=== PATIENT | female | born 1950 | race Caucasian/White ===

== ENCOUNTER → 2016-11-02 | Outpatient (CLI) | payer MEDICARE, OTHER ==
--- NOTE | 2016-11-02 14:56 | CT ---
EXAMINATION TYPE: CT abdomen pelvis w con DATE OF EXAM: 11/02/2016 COMPARISON: 10/06/2015 HISTORY: Upper abdominal pain. History of prior Whipple procedure. CT DLP: 923 mGycm CONTRAST: CT scan of the abdomen and pelvis is performed with Oral Contrast and with IV Contrast, patient injec marvin with 100 mL of Omnipaque 300. FINDINGS: LUNG BASES-: No visible nodule. No infiltrate. LIVER/GB: The gallbladder surgically absent. Small amount of air is seen within the central biliary tree. Mild hepatic steatosis. No space occupying hepatic lesion. Biliary tree is of normal caliber. PANCREAS: No inflammation. No distinct mass. Changes of prior Whipple procedure. SPLEEN: No splenic enlargement. No lesion seen. ADRENALS: Stable left adrenal adenoma. KIDNEYS/BLADDER: No hydronephrosis. No nephrolithiasis. Small right renal cyst. Urinary bladder gr ossly unremarkable. BOWEL: Normal appendix. Normal bowel caliber. No inflammation. Moderate retained fecal debris. GENITAL ORGANS: No gross abnormality. LYMPH NODES: No greater than 1cm abdominal or pelvic lymph nodes are appreciated. AORTA: No significant abnormality. OSSEOUS STRUCTURES: No significant abnormality is seen. OTHER: No significant additional abnormality is seen. IMPRESSION: 1. No significant abnormality to account for the patient's symptoms.
== END | disposition home or self-care (01) ==
LOC: RADCTMAIN 14:10
PROVIDERS: ATTEND Internal Medicine Infectious Disease
DX: R10.10 Upper abdominal pain, unspecified (principal)
CPT/HCPCS: 74177; Q9967

== ENCOUNTER 2016-11-21 09:49 | Day surgery (SDC) | payer MEDICARE, OTHER ==
[2016-11-19 14:05] VITALS: BMI 28.7
[~2016-11-21 09:49] MED LIST: LACTATED RINGERS 1,000 ML IV SCH; LIDOCAINE 1% 20 ML VIAL (10MG/ML) FOR IV START INTRADERMA PRN
[2016-11-21 10:41] VITALS: RESP 16; TEMP 97.7
[2016-11-21] MEDS ORDERED: ONDANSETRON 4 MG/2 ML VIAL IVP ONE (10:42)
[2016-11-21] MEDS ORDERED: PROPOFOL 10 MG/ML 20 ML VIAL IV ONE (11:06)
--- NOTE | 2016-11-21 11:23 | P.PCN ---
Date of Procedure: 11/21/16 Preoperative Diagnosis: Postoperative Diagnosis: Procedure(s) Performed: BRIEF HISTORY: Patient is a 65-year-old, pleasant, white female, scheduled for an upper endoscopy as a part of evaluation of severe epigastric pain, heartburn for the last 2 months duration. She does have loosening history of GERD and has been on Nexium 20 mg daily for 2 years. Recently her medications were increased to 20 mg twice daily, despite which she is symptomatic. She has prior history of partial gastrectomy.. PROCEDURE PERFORMED: Esophagogastroduodenoscopy With biopsy PREOPERATIVE DIAGNOSIS: Epigastric pain/heartburn IV sedation per anesthesia. PROCEDURE: After informed consent was obtained, the patient was brought into the endoscopy unit. IV sedation was administered by Anesthesia under continuous monitoring. Initially the Olympus GIF-140 video endoscope was inserted into the mouth. Esophagus intubated without any difficulty. It was gradually advanced into the stomach there was evidence of previous partial gastrectomy with anastomosis noted. The scope was advanced into the jejunum that appeared normal. At the site of anastomosis and multiple small polyps identified and biopsies were done from this area. The body, cardia and the fappeared slightly erythematous consistent with gastritis. There are 2 polyps in the gastric remnant measuring about 1 m in size both of which were biopsied. The scope was then withdrawn into the esophagus. The GE junction was located at 39 cm from the incisors. there was a short segment tongue of Mcdonald's appearing mucosa proximal to the GE junction and this was biopsied. The rest of the esophagus appeared normal. There were no erosions or ulcerations seen and the patient tolerated the procedure well. IMPRESSION: 1. Gastric polyps in the gastric remnant status post biopsy. 2. Nodularity as well as polyps at the anastomosis status post multiple biopsies 3. 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 She was advised to follow with the biopsy results. If the biopsy confirms the presence of Mcdonald's esophagus, she can have a repeat upper endoscopy in 2 years. In the meantime because of the symptoms she will continue with Nexium twice daily and she may benefit from Carafate 1 g 4 times daily. Implants: Indications for Procedure: Operative Findings: Description of Procedure:
[2016-11-21 12:00] VITALS: BP 121/69; PULSE 59
== END 2016-11-21 12:14 | disposition home or self-care (01) ==
LOC: ORWHC2ENDO 09:49
PROVIDERS: ATTEND Internal Medicine Gastroenterology
DX: K25.9 Gastric ulcer, unspecified as acute or chronic, without hemorrhage or perforation (principal); K31.7 Polyp of stomach and duodenum; K29.50 Unspecified chronic gastritis without bleeding; K22.70 Barrett's esophagus without dysplasia; K21.0 Gastro-esophageal reflux disease with esophagitis; Z88.5 Allergy status to narcotic agent; Z86.73 Personal history of transient ischemic attack (TIA), and cerebral infarction without residual deficits; Z79.899 Other long term (current) drug therapy; Z79.82 Long term (current) use of aspirin; Z90.710 Acquired absence of both cervix and uterus; Z90.3 Acquired absence of stomach [part of]
CPT/HCPCS: 88305; 88342; 43239; J2405; J2704

== ENCOUNTER → 2016-12-27 | Outpatient (CLI) | payer MEDICARE, OTHER ==
--- NOTE | 2016-12-27 14:59 | BD ---
EXAMINATION TYPE: MG DEXA axial skeleton. DATE OF EXAM: 12/27/2016 COMPARISON: NONE CLINICAL HISTORY: M85.8 OSTEOPENIA Height: 61.3 Weight: 153 FRAX RISK QUESTIONS: Alcohol (3 or more units per day): NO Family History (Parent hip fracture): NO Glucocorticoids (More than 3mos): NO (Ex: prednisone, prednisolone, methylprednisolone, dexamethasone, and hydrocortisone). History of Fracture in Adulthood: NO Secondary Osteoporosis: 1. Type 1 Diabetes: NO 2. Hyperthyroidism: NO 3. Menopause before 45: YES 4. Malnutrition: NO 5. Chronic liver disease: NO Rheumatoid Arthritis: NO Current Tobacco Use: NO RISK FACTORS HISTORY OF: Surgery to Spine FUSION TO BOTH CERVICAL AND LUMBAR SPINE When: > 3 YRS OLD Family History of Osteoporosis: NO Active: SOMEWHAT Diet low in dairy products/other sources of calcium: NO Postmenopausal woman: TOTAL HYSTERECTOMY IN HER LATE 30S Take estrogen and/or progesterone medications: IN THE PAST ONLY How lon-4 YRS Lost more than 2 inches in height since high school: UNSURE Hyperparathyroidism: YES, THYROID RADIATED Adrenal Insufficiency: NO MEDICATIONS: Thyroid Medications: YES, SYNTHROID How Lon YRS Additional Medications: VIT D, BP MEDS, VENLAFAXINE, REFLUX MEDICATION, STATINS FOR CHOLESTEROL, REQU IP, HEART MEDS Additional History: ANEMIC, HX OF AA WITH SKULL FRACTURE, FUSIONS IN NECK AND LUMBAR SPINE EXAM MEASUREMENTS: Bone mineral densitometry was performed using the [employer] System. Bone mineral density as measured about the Lumbar spine is: ----- L1-L4(G/cm2): 1.023 T Score Values are as follows: ----- L1: -1.6 ----- L2: -1.4 ----- L3: -1.0 ----- L4: -1.4 ----- L1-L4: -1.3 Bone mineral density THIS IS HER FIRST BONE DENSITY SCAN AT [facility] Bone mineral density about the R hip (g/cm2): 0.885 Bone mineral density about the L hip (g/cm2): 0.856 T Score values are as follows: -----R Neck: -1.3 -----L Neck: -1.1 -----R Total: -1.0 -----L Total: -1.2 Bone mineral density FIRST BONE DENSITY TEST AT [facility] FRAX%'S: THERE IS A 9.0% CHANCE OF A MAJOR OSTEOPOROTIC FX AND A 1.0% FOR HIP FX....PROBABILITY IN 10 YRS TIME IMPRESSION: Osteopenia (T Score between -2.5 and -1 as noted by T score values There is slightly increased risk of fracture and the patient may be considered for treatment. Re-Screen 2-5 years. FOR BOTH OF HER HIPS AND LUMBAR SPINE NOTE: T-SCORE=SD OF THE YOUNG ADULT MEAN.
--- NOTE | 2016-12-28 10:13 | MM ---
Reason for exam: screening (asymptomatic). Last mammogram was performed 3 years and 9 months ago. History: Patient is postmenopausal. Benign core biopsy of the right breast, September 20, 2009. Benign left mammotome panel of the left breast, October 08, 2008. Benign left mammotome panel of the left breast, July 10, 2006. Benign right mammotome panel of the right breast, July 10, 2006. Reductions of both breasts, 2006. Benign stereotactic core biopsy of the right breast, October 18, 2000. Took estrogen for 6 years 1 month beginning at age 48. Taking unspecified hormones for 5 years beginning at age 53. Physical Findings: A clinical breast exam by your physician is recommended on an annual basis and results should be correlated with mammographic findings. MG 3D Screening Mammo W/Cad Bilateral CC and MLO view(s) were taken. Prior study comparison: April 10, 2013, CAD bilateral diagnostic mammogram. April 09, 2012, bilateral digital screening mammo w/CAD. There are scattered fibroglandular densities. No suspicious abnormality. No significant changes when compared with prior studies. ASSESSMENT: Negative, BI-RAD 1 RECOMMENDATION: Routine screening mammogram of both breasts in 1 year.
== END | disposition home or self-care (01) ==
LOC: RADMAMWWP 13:44
PROVIDERS: ATTEND Internal Medicine Infectious Disease
DX: Z12.31 Encounter for screening mammogram for malignant neoplasm of breast (principal); M85.80 Other specified disorders of bone density and structure, unspecified site
CPT/HCPCS: 77080; 77063; G0202

== ENCOUNTER → 2018-01-31 | Outpatient (CLI) | payer MEDICARE, OTHER ==
[2018-01-31 14:17] LABS: Appearance,Urine Cloudy (Clear); Bacteria,Urine Moderate /hpf; Bilirubin,Urine Negative (Negative); Blood,Urine Trace (Negative); Color,Urine Light Yellow; Glucose,Urine (UA) Negative (Negative); Ketones,Urine Negative (Negative); Leukocyte Esterase,Urine Large (Negative); Mucus,Urine Rare /hpf; Nitrite,Urine Positive (Negative); Protein,Urine Negative (Negative); RBC,Urine 2 /hpf (0-5); Squamous Epithelial Cell,Urine 1 /hpf (0-4); Urobilinogen,Urine <2.0 mg/dL (<2.0); WBC,Urine 182 /hpf (0-5)
== END | disposition home or self-care (01) ==
LOC: LABWHC1 12:41
PROVIDERS: ATTEND Internal Medicine Infectious Disease
DX: N39.0 Urinary tract infection, site not specified (principal)
CPT/HCPCS: 81001; 87077; 87086; 87186

== ENCOUNTER → 2018-05-28 | Outpatient (CLI) | payer MEDICARE, OTHER ==
--- NOTE | 2018-05-30 09:04 | MM ---
Reason for exam: screening (asymptomatic). Last mammogram was performed 1 year and 5 months ago. History: Patient is postmenopausal. Benign core biopsy of the right breast, September 20, 2009. Benign left mammotome panel of the left breast, October 08, 2008. Benign left mammotome panel of the left breast, July 10, 2006. Benign right mammotome panel of the right breast, July 10, 2006. Reductions of both breasts, 2006. Benign stereotactic core biopsy of the right breast, October 18, 2000. Took estrogen for 6 years 1 month beginning at age 48. Taking unspecified hormones for 5 years beginning at age 53. Physical Findings: A clinical breast exam by your physician is recommended on an annual basis and results should be correlated with mammographic findings. MG 3D Screening Mammo W/Cad Bilateral CC and MLO view(s) were taken. Prior study comparison: December 27, 2016, bilateral MG 3d screening mammo w/cad. April 10, 2013, CAD bilateral diagnostic mammogram. There are scattered fibroglandular densities. Benign appearing bilateral calcifications. Left biopsy marker noted. ASSESSMENT: Benign, BI-RAD 2 RECOMMENDATION: Routine screening mammogram of both breasts in 1 year.
== END | disposition home or self-care (01) ==
LOC: RADMAMWWP 12:59
PROVIDERS: ATTEND Internal Medicine Infectious Disease
DX: Z12.31 Encounter for screening mammogram for malignant neoplasm of breast (principal)
CPT/HCPCS: 77063; 77067

== ENCOUNTER → 2022-09-14 | Outpatient (CLI) | payer MEDICARE, OTHER ==
--- NOTE | 2022-09-17 08:41 | MM ---
Reason for Exam: Screening (asymptomatic). Last mammogram was performed 4 year(s) and 4 month(s) ago. Patient History: Menarche at age 7. First Full-Term at age 19. Left ovary removed at age 44. Right ovary removed at age 44. Hysterectomy at age 44. Postmenopausal. Estrogen for 6 years, 1 month, from age 48 until age 54. Currently using Unspecified Hormone, beginning at age 53 for 5 years. 09/20/2009, Benign Core Biopsy on the right side. 2006, Bilateral Reduction. 10/08/2008, Benign Core Biopsy on the left side. 07/10/2006, Benign Core Biopsy on the left side. 07/10/2006, Benign Core Biopsy on the right side. 10/18/2000, Benign Stereotactic Core Biopsy on the right side. Risk Values: Kiera 5 year model risk: 2.6%. NCI Lifetime model risk: 6.3%. Prior Study Comparison: 04/10/2013 Bilateral Diagnostic Mammogram, LOCATED WITHIN [facility]. 12/27/2016 Bilateral Screening Mammogram, LOCATED WITHIN [facility]. 05/28/2018 Bilateral Screening Mammogram, LOCATED WITHIN [facility]. Tissue Density: There are scattered fibroglandular densities. Findings: Analyzed By CAD. There is no suspicious group of microcalcifications or new suspicious mass in either breast. Biopsy marker in the left breast. Appearing calcifications within both breasts. Chronic nodularity within the right breast. Overall Assessment: Benign, BI-RAD 2 Management: Screening Mammogram of both breasts in 1 year. A clinical breast exam by your physician is recommended on an annual basis and results should be correlated with mammographic findings. Electronically signed and approved by: Octavio Vance D.O.
== END | disposition home or self-care (01) ==
LOC: RADMAMWWP 15:42
PROVIDERS: ATTEND Internal Medicine Infectious Disease
DX: Z12.31 Encounter for screening mammogram for malignant neoplasm of breast (principal); Z78.0 Asymptomatic menopausal state
CPT/HCPCS: 77063; 77067

== ENCOUNTER → 2022-09-14 | Outpatient (CLI) | payer MEDICARE, OTHER ==
[2022-09-15 01:47] LABS: Basophils # (A) 0.1 k/uL (0-0.2); Basophils % (A) 0 %; Eosinophils # (A) 0.2 k/uL (0-0.7); Eosinophils % (A) 1 %; HCT 35.8 % (34.0-46.0); HGB 11.5 gm/dL (11.4-16.0); Lymphocytes # (A) 1.6 k/uL (1.0-4.8); Lymphocytes % (A) 11 %; MCH 29.7 pg (25.0-35.0); MCHC 32.2 g/dL (31.0-37.0); MCV 92.1 fL (80.0-100.0); Mean Platelet Volume 8.4; Monocytes # (A) 0.9 k/uL (0-1.0); Monocytes % (A) 6 %; Neutrophils # (A) 11.5 k/uL (1.3-7.7); Neutrophils % (A) 80 %; Platelet Count 388 k/uL (150-450); RBC 3.89 m/uL (3.80-5.40); RDW 12.5 % (11.5-15.5); WBC 14.3 k/uL (3.8-10.6)
[2022-09-16 09:25] LABS: ALT 26 U/L; AST 24 U/L; Albumin 4.4 d/dL; Albumin/Globulin Ratio 1.91 Ratio; Alkaline Phosphatase 124 U/L; Blood Urea Nitrogen 24.8 mg/dL; Calcium 9.7 mg/dL; Carbon Dioxide 24.2 mmol/L; Chloride 101 mmol/L; Chol/HDL Ratio 2.39 Ratio; Globulin 2.3 d/dL; Glucose 99 mg/dL; LDL Cholesterol,Calculated 67.2 mg/dL; Potassium 4.5 mmol/L; Sodium 138 mmol/L; Total Bilirubin 0.3 mg/dL; Total Protein 6.7 d/dL
[2022-09-16 09:26] LABS: T4, Free (Free Thyroxine) 1.24 ng/dL
[2022-09-17 09:58] LABS: Non-African American GFR(CKD) 56.4
== END | disposition home or self-care (01) ==
LOC: LABWHC1 16:00
PROVIDERS: ATTEND Internal Medicine Infectious Disease
DX: I10 Essential (primary) hypertension (principal); E78.00 Pure hypercholesterolemia, unspecified; E55.9 Vitamin D deficiency, unspecified; E03.9 Hypothyroidism, unspecified
CPT/HCPCS: 36415; 80053; 80061; 82306; 84439; 84443; 85025